=== PATIENT | female | born 2000 | race Caucasian/White ===

== ENCOUNTER 2021-09-07 18:39 | Emergency (ER) | payer OTHER ==
[~2021-09-07] VITALS: Ht 160 cm; Wt 81.8 kg
[2021-09-07] MEDS ORDERED: PERCOCET 325 MG1 TA2 PO (19:15)
[2021-09-07 19:37] VITALS: BP 115/74; PULSE 70; TEMP 98.4
== END 2021-09-07 19:37 | disposition home or self-care (01) ==
LOC: COL.ER 18:39
DX: T23.132A Burn of first degree of multiple left fingers (nail), not including thumb, initial encounter (principal); X10.0XXA Contact with hot drinks, initial encounter